=== PATIENT | male | born 1965 | race African-American/Black ===

== ENCOUNTER 2024-03-30 11:52 | Emergency (ER) | payer OTHER ==
[~2024-03-30] VITALS: Ht 185.4 cm; Wt 100.0 kg
[2024-03-30 11:58] VITALS: BP 121/71; PULSE 84; RESP 18; TEMP 97.7
[2024-03-30] MEDS ORDERED: FURO-152 PO (11:59)
[2024-03-30] MEDS ORDERED: HYDR25TA PO (11:59)
[2024-03-30] MEDS ORDERED: LISI20TA24 PO (12:21)
[2024-03-30 12:24] LABS: ANION GAP 4 mmol/L (8-16); CALCIUM, TOTAL 9.9 mg/dL (8.8-10.5); CARBON DIOXIDE 33 mmol/L (22-29); CHLORIDE 100 mmol/L (98-107); GLOMERULAR FILTR. RATE CALC > 60 mL/min (>60); GLUCOSE,RANDOM 112 mg/dL (70-110); POTASSIUM 4.2 mmol/L (3.5-5.1); SODIUM SERUM 137 mmol/L (136-145); UREA NITROGEN, BLOOD 23 mg/dL (7-18)
[2024-03-30 12:26] LABS: BASOPHILS % (AUTO) 0.1 % (0.0-2.0); EOSINOPHILS % (AUTO) 0.3 % (1.0-6.0); HEMATOCRIT 47.6 % (41-53); LYMPHOCYTES # (AUTO) 1.6 K/uL (1.0-4.8); LYMPHOCYTES % (AUTO) 16.3 % (22.0-44.0); MEAN CORPUSCULAR HEMOGLOBIN 32.7 pg (26.0-34.0); MEAN CORPUSCULAR HGB CONC 33.7 G/dL (31.0-37.0); MEAN CORPUSCULAR VOLUME 97 fL (80-100); MONOCYTES # (AUTO) 0.8 K/uL (0.1-1.0); MONOCYTES % (AUTO) 7.9 % (2.0-9.0); NEUTROPHILS # (AUTO) 7.3 K/uL (1.8-7.7); NEUTROPHILS % (AUTO) 75.4 % (40.0-70.0); PLATELET COUNT (AUTO) 285 K/uL (150-450); RED CELL DISTRIBUTION WIDTH 13.3 % (11.5-14.5); WHITE BLOOD COUNT (AUTO) 9.7 K/uL (4.5-11.0)
[2024-03-30] MEDS: METHOCARBAMOL 500 MG TABLET PO ONE (12:26)
[2024-03-30] MEDS: LIDOCAINE 5% TRANSDERMAL PATCH TD ONE (12:26)
[2024-03-30] MEDS: KETOROLAC TROMETHAMINE 60 MG/2 ML VIAL IM ONE (12:27)
[2024-03-30 12:33] LABS: TROPONIN I-HIGH SENSITIVITY Less Than 4 ng/L (<76)
[2024-03-30] MEDS ORDERED: IBUP-1492 PO (13:34)
[2024-03-30] MEDS ORDERED: LIDO700A15 TP (13:34)
[2024-03-30] MEDS ORDERED: PERCT PO (13:34)
[2024-03-30] MEDS ORDERED: METH-659 PO (13:34)
== END 2024-03-30 13:44 | disposition home or self-care (01) ==
LOC: EMS 11:52
DX: M75.102 Unspecified rotator cuff tear or rupture of left shoulder, not specified as traumatic (principal); R07.9 Chest pain, unspecified; I10 Essential (primary) hypertension
CPT/HCPCS: 99285; 71045; 80048; 83880; 84484; 85025; 36415; 93005; 96372; J1885